=== PATIENT | male | born 1975 | race African-American/Black ===

== ENCOUNTER 2018-12-31 07:18 | Emergency (ER) | payer SELFPAY ==
[~2018-12-31] VITALS: Ht 180.3 cm; Wt 95.0 kg
[2018-12-31] MEDS ORDERED: ACETAMINOPHEN WITH CODEINE 300/30MG TABLET PO ONE (09:30)
[2018-12-31 09:34] VITALS: BP 163/97
== END 2018-12-31 09:50 | disposition home or self-care (01) ==
LOC: ER 07:18
DX: K08.89 Other specified disorders of teeth and supporting structures (principal); R21 Rash and other nonspecific skin eruption
CPT/HCPCS: 99283

== ENCOUNTER 2019-03-26 14:56 | Emergency (ER) | payer OTHER ==
[~2019-03-26] VITALS: Ht 180.3 cm; Wt 97.0 kg
[2019-03-26] MEDS ORDERED: acetaminophen (15:24)
[2019-03-26] MEDS ORDERED: DICL100G27 TP (15:24)
[2019-03-26] MEDS ORDERED: IBUPROFEN 800MG TABLET PO ONE (16:00)
[2019-03-26 17:34] VITALS: BP 141/77
== END 2019-03-26 17:43 | disposition home or self-care (01) ==
LOC: ER 14:56
DX: S09.8XXA Other specified injuries of head, initial encounter (principal); R51 Headache; M54.89 Other dorsalgia; M25.511 Pain in right shoulder; Y04.2XXA Assault by strike against or bumped into by another person, initial encounter; Y93.89 Activity, other specified; Y92.89 Other specified places as the place of occurrence of the external cause; Y99.0 Civilian activity done for income or pay
CPT/HCPCS: 72070; 73030; 99284

== ENCOUNTER 2019-11-04 07:21 | Emergency (ER) | payer SELFPAY ==
[~2019-11-04] VITALS: Ht 180.3 cm; Wt 100.0 kg
[~2019-11-04 07:21] MED LIST: DICL100G27 TP; acetaminophen
[2019-11-04 07:56] VITALS: BP 174/124
== END 2019-11-04 08:08 | disposition home or self-care (01) ==
LOC: ER 07:21
DX: Z00.00 Encounter for general adult medical examination without abnormal findings (principal); R94.31 Abnormal electrocardiogram [ECG] [EKG]; Z79.899 Other long term (current) drug therapy
CPT/HCPCS: 93005; 99283

== ENCOUNTER 2019-12-03 09:32 | Emergency (ER) | payer SELFPAY ==
[~2019-12-03] VITALS: Ht 180.3 cm; Wt 100.6 kg
[2019-12-03 10:43] VITALS: BP 149/101
== END 2019-12-03 10:46 | disposition home or self-care (01) ==
LOC: ER 09:32
DX: I10 Essential (primary) hypertension (principal)
CPT/HCPCS: 99281

== ENCOUNTER 2020-02-03 19:42 | Emergency (ER) | payer MEDICAID ==
[~2020-02-03] VITALS: Ht 180.3 cm; Wt 96.0 kg
[2020-02-03] MEDS ORDERED: KETOROLAC 60MG/2ML VIAL IM STA (22:29)
[2020-02-03 23:05] VITALS: BP 134/99
== END 2020-02-03 23:06 | disposition home or self-care (01) ==
LOC: ER 19:42
DX: K02.9 Dental caries, unspecified (principal); Z79.899 Other long term (current) drug therapy
CPT/HCPCS: 96372; 99283; J1885

== ENCOUNTER 2020-08-25 21:27 | Emergency (ER) | payer MEDICAID ==
[~2020-08-25] VITALS: Ht 180.3 cm; Wt 99.0 kg
[2020-08-25] MEDS ORDERED: NAPR-681 MT (22:23)
[2020-08-25] MEDS ORDERED: AMOX1TAB16 MT (22:23)
[2020-08-25] MEDS ORDERED: AMOXICILLIN/POTASSIUM CLAVULANATE 875/125MG TAB PO ONE (22:30)
[2020-08-25] MEDS ORDERED: KETOROLAC 30MG/ML VIAL IM ONE (22:30)
[2020-08-25 23:01] VITALS: BP 144/93
== END 2020-08-25 23:03 | disposition home or self-care (01) ==
LOC: ER 21:27
DX: K04.7 Periapical abscess without sinus (principal); R03.0 Elevated blood-pressure reading, without diagnosis of hypertension
CPT/HCPCS: 96372; 99283; J1885

== ENCOUNTER 2021-07-03 13:42 | Emergency (ER) | payer MEDICAID ==
[~2021-07-03] VITALS: Ht 180.3 cm; Wt 91.0 kg
[~2021-07-03 13:42] MED LIST changes: +AMOX1TAB16 MT; +NAPR-681 MT
[2021-07-03 13:54] VITALS: BP 133/95
== END 2021-07-03 18:33 | disposition left against medical advice (07) ==
LOC: ER 13:42
DX: R06.02 Shortness of breath (principal)
CPT/HCPCS: 71045; 93005; 99283

== ENCOUNTER 2021-07-04 08:49 | Emergency (ER) | payer MEDICAID ==
[~2021-07-04] VITALS: Ht 180.3 cm; Wt 91.0 kg
[2021-07-04] MEDS ORDERED: SODIUM CHLORIDE 0.9% 1,000 ML IV ONE (11:00)
[2021-07-04 12:16] LABS: BASOPHILS % 0.7 % (0.0-2.0); EOSINOPHILS % 1.5 % (0.0-5.0); HEMATOCRIT. 42.2 % (42.0-52.0); HEMOGLOBIN. 13.9 g/dL (14.0-18.0); MEAN CORPUSCULAR HEMOGLOBIN 27.6 pg (28.0-32.0); MEAN CORPUSCULAR VOLUME 83.8 fL (80.0-94.0); MEAN PLATELET VOLUME 7.5 fl (7.4-10.4); MONOCYTES % 9.4 % (2.0-8.0); NEUTROPHILS % 46.4 % (40.0-76.0); PLATELET 328 x1000/uL (130-400); RED BLOOD CELL COUNT 5.04 mill/uL (4.7-6.1); RED CELL DISTRIBUTION WIDTH 14.3 % (11.6-14.6)
[2021-07-04 12:22] LABS: CHLORIDE 107 mEq/L (98-107)
[2021-07-04 15:30] VITALS: BP 159/96
== END 2021-07-04 15:35 | disposition home or self-care (01) ==
LOC: ER 08:49 → CANBEDREQ 07-05 10:42
DX: I48.91 Unspecified atrial fibrillation (principal); S09.8XXA Other specified injuries of head, initial encounter; M54.2 Cervicalgia; M54.9 Dorsalgia, unspecified; W22.8XXA Striking against or struck by other objects, initial encounter; Y93.89 Activity, other specified; Y92.89 Other specified places as the place of occurrence of the external cause
CPT/HCPCS: 36415; 70450; 71045; 72125; 80053; 84484; 85025; 93005; 96360; 99285; J7030

== ENCOUNTER 2023-05-08 10:48 | Emergency (ER) | payer MEDICAID ==
[~2023-05-08] VITALS: Ht 175.3 cm; Wt 97.0 kg
[~2023-05-08 10:48] MED LIST changes: -DICL100G27 TP; +DICL100G32 TP; +IBUP-2029 MT; +METH-653 MT
[2023-05-08 11:00] VITALS: BP 193/122; PULSE 66; RESP 20; TEMP 98.1; O2SAT 99
[2023-05-08] MEDS ORDERED: BENZ60GE TP (12:41)
== END 2023-05-08 13:41 | disposition home or self-care (01) ==
LOC: ER 10:48
DX: L73.1 Pseudofolliculitis barbae (principal); L81.0 Postinflammatory hyperpigmentation; I10 Essential (primary) hypertension
CPT/HCPCS: 99283

== ENCOUNTER 2024-07-14 04:11 | Emergency (ER) | payer MEDICAID ==
[~2024-07-14] VITALS: Ht 180.3 cm; Wt 98.0 kg
[~2024-07-14 04:11] MED LIST changes: +BENZ60GE TP
[2024-07-14 04:18] VITALS: O2SAT 100
[2024-07-14] MEDS: KETOROLAC 15MG/ML VIAL IM ONE (05:12)
[2024-07-14] MEDS ORDERED: BENZ100C86 MT (05:19)
[2024-07-14] MEDS ORDERED: GUAI-450 MT (05:19)
[2024-07-14 05:57] VITALS: BP 125/89; PULSE 72; RESP 16; TEMP 36.94740; O2SAT 100
== END 2024-07-14 05:58 | disposition home or self-care (01) ==
LOC: ER 04:11
DX: B34.9 Viral infection, unspecified (principal); I10 Essential (primary) hypertension; Z79.899 Other long term (current) drug therapy
CPT/HCPCS: 99283; 71045; 96372; J1885

== ENCOUNTER 2024-10-24 08:17 | Emergency (ER) | payer MEDICAID ==
[~2024-10-24] VITALS: Ht 177.8 cm; Wt 97.5 kg
[~2024-10-24 08:17] MED LIST changes: +BENZ100C86 MT; +GUAI-450 MT
[2024-10-24 08:23] VITALS: O2SAT 100
[2024-10-24 08:50] LABS: CHLORIDE 111 mEq/L (98-107); POTASSIUM 4.2 mEq/L (3.5-5.1); SODIUM 141 mEq/L (136-145)
[2024-10-24 08:51] LABS: CARBON DIOXIDE 26 mEq/L (21-32)
[2024-10-24 08:52] LABS: CALCIUM 9.2 mg/dL (8.7-10.4)
[2024-10-24 08:53] LABS: CLARITY URINE TURBID (CLEAR); COLOR URINE RED (YELLOW); GLUCOSE URINE NEGATIVE (NEGATIVE); KETONES URINE NEGATIVE (NEGATIVE); LEUKOCYTE ESTERASE URINE 1+ (NEGATIVE); NITRITE URINE NEGATIVE (NEGATIVE); OCCULT BLOOD URINE 3+ (NEGATIVE); PROTEIN URINE 1+ (NEGATIVE); SPECIFIC GRAVITY URINE 1.021 (1.005-1.030); UROBILINOGEN URINE 0.2 E.U./dL (0.2-1.0)
[2024-10-24 08:55] LABS: BASOPHILS % 0.5 % (0.0-2.0); EOSINOPHILS % 3.8 % (0.0-5.0); HEMATOCRIT. 41.4 % (42.0-52.0); HEMOGLOBIN. 13.6 g/dL (14.0-18.0); LYMPHOCYTES % 36.1 % (20.0-50.0); MEAN CORPUSCULAR HEMOGLOBIN 27.5 pg (28.0-32.0); MEAN CORPUSCULAR HGB CONC 32.9 g/dL (31.0-37.0); MEAN CORPUSCULAR VOLUME 83.6 fL (80.0-94.0); MEAN PLATELET VOLUME 7.7 fl (7.4-10.4); MONOCYTES % 9.2 % (2.0-8.0); NEUTROPHILS % 50.4 % (40.0-76.0); PLATELET 339 x1000/uL (130-400); RED BLOOD CELL COUNT 4.95 mill/uL (4.7-6.1); RED CELL DISTRIBUTION WIDTH 14.4 % (11.6-14.6); WHITE BLOOD COUNT 7.4 x1000/uL (4.5-11.0)
[2024-10-24 08:56] LABS: CREATININE 1.2 mg/dL (0.6-1.3); GLUCOSE 132 mg/dL (70-105)
[2024-10-24 08:57] LABS: UREA NITROGEN BLOOD 16 mg/dL (9-23)
[2024-10-24 08:58] LABS: ALANINE AMINOTRANSFERASE 56 IU/L (10-49); ALBUMIN 4.2 g/dL (3.2-4.8); ASPARTATE AMINOTRANSFERASE 51 IU/L (<34)
[2024-10-24 08:59] LABS: BILIRUBIN DIRECT 0.2 mg/dL (<=3.0); BILIRUBIN TOTAL 0.6 mg/dL (0.1-1.0); PROTEIN TOTAL 7.1 g/dL (6.0-8.3)
[2024-10-24 09:12] LABS: RBC URINE TNTC /hpf (0-2)
[2024-10-24 09:13] LABS: SQUAMOUS EPITHELIAL CELL URINE NONE SEEN /lpf (RARE/1+); WBC URINE 0-2 /hpf (0-2)
[2024-10-24 09:15] LABS: BACTERIA URINE NONE SEEN
[2024-10-24 11:50] VITALS: BP 180/100; PULSE 99; RESP 16; TEMP 37.1; O2SAT 98
== END 2024-10-24 11:52 | disposition home or self-care (01) ==
LOC: ER 08:28
DX: R31.9 Hematuria, unspecified (principal); R79.89 Other specified abnormal findings of blood chemistry; I10 Essential (primary) hypertension; R16.0 Hepatomegaly, not elsewhere classified; Z79.899 Other long term (current) drug therapy
CPT/HCPCS: 36415; 74176; 76705; 80048; 80076; 81003; 85025; 99284